=== PATIENT | female | born 1960 | race Caucasian/White ===

== ENCOUNTER 2018-06-29 11:30 | Outpatient (CLI) | payer OTHER, MEDICAID | END 2018-06-29 11:31 | disposition critical access hospital (66) | LOC: EMS 11:30 | PROVIDERS: ATTEND Surgery | DX: M54.5 Low back pain (principal); V49.60XA Unspecified car occupant injured in collision with unspecified motor vehicles in traffic accident, initial encounter; Y92.414 Local residential or business street as the place of occurrence of the external cause | CPT/HCPCS: A0425; A0429; A0999 ==

== ENCOUNTER 2018-06-29 11:51 | Emergency (ER) | payer OTHER, MEDICAID ==
[2018-06-29] MEDS ORDERED: IBUPROFEN 600 MG TABLET PO STA (13:01)
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
[2018-06-29 13:12] VITALS: BP 106/77
== END 2018-06-29 13:15 | disposition home or self-care (01) ==
LOC: ED 11:51
DX: M53.3 Sacrococcygeal disorders, not elsewhere classified (principal); V43.52XA Car driver injured in collision with other type car in traffic accident, initial encounter
CPT/HCPCS: 99283; A9270

== ENCOUNTER 2018-10-27 12:35 | Emergency (ER) | payer MEDICAID, OTHER ==
[2018-10-27] MEDS ORDERED: HYDROcod/ACETAM 5/325 MG TABLET PO STA (14:47)
[2018-10-27] MEDS ORDERED: IBUPROFEN 800 MG TABLET PO STA (14:56)
--- NOTE | 2018-10-27 16:49 | XRAY Report ---
Reason: Right shoulder pain Procedure Date: 10/27/2018 Accession Number: [id number] / [id number] Procedure: XR - Shoulder 3 View RT CPT Code: FULL RESULT: EXAM: RIGHT SHOULDER RADIOGRAPHY EXAM DATE: 10/27/2018 04:17 PM. CLINICAL HISTORY: Right shoulder pain. COMPARISON: None. TECHNIQUE: 3 views. FINDINGS: Bones: No acute fracture or bony lesion. Type I/II acromion. Minimal degenerative spurring. Joints: Normal alignment. No dislocation. Mild joint space narrowing. Soft tissues: Right lung and right ribs are unremarkable. Along the lateral margin of the right humeral head is an amorphous calcification measuring 2 cm consistent with calcific tendinosis. IMPRESSION: 1. No acute osseous abnormalities. Normal alignment. 2. Mild degenerative changes of the right shoulder. 3. Right shoulder calcific tendinosis. RADIA
--- NOTE | 2018-10-27 17:04 | ED Physician Documentation ---
PD HPI UPPER EXT INJURY - Stated complaint Stated Complaint: RT SHOULDER PX - Chief complaint Chief Complaint: Ext Problem - History obtained from History obtained from: Patient - History of Present Illness Location: Right, Shoulder Timing - duration: Months (Two or three months.) Timing - details: Still present Worsened by: Moving, Palpating Associated symptoms: No: Weakness, Numbness Similar symptoms before: No: No diagnosis - Additonal information Additional information: The patient is a 58-year-old female who presents with pain in her right upper arm, near the shoulder. She has had similar pain for the past 2 or 3 months, but it became worse today. She denies any traumatic injury. She denies numbness or weakness. The pain is worse with movement. She is right hand dominant. Review of Systems Constitutional: denies: Fever Nose: denies: Congestion Cardiac: denies: Chest pain / pressure Respiratory: denies: Dyspnea, Cough Skin: denies: Rash Musculoskeletal: reports: Extremity pain (Right upper arm.). 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 HEENT: Other - Present Medications Home Medications: Ambulatory Orders Medication Instructions Recorded Confirmed Naproxen [Naprosyn] 500 mg PO BID PRN #30 tablet 10/27/18 - Allergies Allergies/Adverse Reactions: Allergies Allergy/AdvReac Type Severity Reaction Status Date / Time codeine AdvReac Nausea Verified 10/27/18 13:07 - Social History Does the pt smoke?: No Smoking Status: Never smoker Does the pt drink ETOH?: No Does the pt have substance abuse?: No - Immunizations Immunizations are current?: Yes PD ED PE NORMAL - Vitals Vital signs reviewed: Yes (Mild systolic hypertension initially.) - General General: Alert and oriented X 3, Well developed/nourished - HEENT HEENT: Atraumatic - Neck Neck: Supple, no meningeal sign, No bony TTP, No adenopathy - Cardiac Cardiac: RRR - Respiratory Respiratory: No respiratory distress, Clear bilaterally - Back Back: No spinal TTP - Derm Derm: No rash - Extremities Extremities: No deformity, Other (There is tenderness to palpation at the anterior aspect of the right shoulder, over the proximal portion of the biceps tendon. Elevation of the right arm, particularly against resistance, exacerbates her discomfort. Distal neurovascular is intact.) - Neuro Neuro: Alert and oriented X 3, No motor deficit, No sensory deficit Results - Vitals Vitals: Oxygen O2 Source Room air - Rads (name of study) right shoulder Radiology: Prelim report reviewed, EMP read contemporaneously, See rad report (1) No acute osseous abnormalities. Normal alignment. 2) Mild degenerative changes of the right shoulder. 3) Right shoulder calcific tendinosis.) PD MEDICAL DECISION MAKING - ED course Complexity details: reviewed results, re-evaluated patient, considered differential, d/w patient, d/w family ED course: The patient's presentation is most consistent with calcific tendinitis of the right biceps tendon. This is also visualized on radiographic imaging of the right shoulder. Treatment in the emergency department included administration of ibuprofen 800 mg and Vicodin 1 tablet orally. A right arm sling was applied. She is being discharged with prescription for Naprosyn. I discussed with her the diagnosis, symptomatic treatment and outpatient follow-up, as well as potentially worrisome signs or symptoms that should prompt reevaluation in the emergency department. Departure - Departure Disposition: 01 Home, Self Care Clinical Impression: Calcific tendinitis Condition: Stable Instructions: ED Tendinitis Calcific Follow-Up: [facility] [Provider Group] [facility] [Provider Group] Prescriptions: Naproxen [Naprosyn] 500 mg PO BID PRN #30 tablet PRN Reason: Pain Comments: Wear the arm sling if it provides comfort. Take Naprosyn twice daily as prescribed. Let pain be your guide to activity level. Follow-up with primary physician or rfid specialist. Call to schedule an appointment. Return to the emergency department if you develop increasing pain, or otherwise worsening symptoms. Forms: Activity restrictions Discharge Date/Time: 10/27/18 17:18
[2018-10-27 17:11] VITALS: BP 129/71
== END 2018-10-27 17:18 | disposition home or self-care (01) ==
LOC: ED 12:35
DX: M75.21 Bicipital tendinitis, right shoulder (principal)
CPT/HCPCS: 73030; 99283; A9270